=== PATIENT | male | born 1965 | race Caucasian/White ===

== ENCOUNTER 2020-05-26 15:52 | Inpatient (IN) ==
[2020-05-26 17:58] LABS: ABS Basophils 0.1 10^3/ul (0-0.2); ABS Eosinophils 0.2 10^3/ul (0-0.6); ABS Lymphocytes 1.9 10^3/ul (1.0-4.8); ABS Monocytes 0.5 10^3/ul (0-0.8); Eosinophil % 3.3 %; Hematocrit 40 % (42-52); Lymphocyte % 28.3 %; Mean Corpuscular HGB Conc 35 g/dL (31-36); Mean Corpuscular Hemoglobin 32 pg (27-31); Mean Corpuscular Volume 90 fL (80-94); Mean Platelet Volume 7.4 fL (7.4-10.4); Platelet Count 197 10^3/uL (150-450); Red Blood Count 4.42 10^6 /uL (4.18-5.48); Red Cell Distribution Width 15 % (10-15); White Blood Count 6.8 10^3/uL (3.5-10.8)
[2020-05-26] MEDS ORDERED: Vancomycin 1,000 MG in NS 0.9% 250 ml 250 ML IV ONE (18:13)
[2020-05-26] MEDS ORDERED: cefTRIAXone VIAL 1,000 MG VIAL IM ONE (18:13)
[2020-05-26] MEDS ORDERED: NS 0.9% 1000 ml BAG 1,000 ML IV ONE (18:13)
[2020-05-26 18:34] LABS: BUN/Creatinine Ratio 16.1 (8-20); C Reactive Protein 14.81 mg/L (<8.01); Calcium 9.2 mg/dL (8.6-10.3); EGFR African American 102.1 (>60); EGFR Non-African American 84.4 (>60); Potassium 3.9 mmol/L (3.5-5.0)
[2020-05-26] MEDS ORDERED: cefTRIAXone 2 GM ADDV.VIAL 2 GM in NS 0.9% 100 ml BAG 100 ML IVPB ONE (18:35)
[2020-05-26] MEDS ORDERED: cefTRIAXone 1 gm/50 mL NS BAG 1 GM/50 ML BAG IV ONE (18:35)
[2020-05-26 19:50] LABS: Erythrocyte Sed Rate 39 mm/Hr (0-19)
[2020-05-27] MEDS ORDERED: Vancomycin 1,000 MG in NS 0.9% 250 ml 250 ML IVPB ONE (00:43)
[2020-05-27] MEDS ORDERED: Vancomycin 1,500 MG in NS 0.9% 250 ml 250 ML IVPB ONE (00:52)
[2020-05-27] MEDS ORDERED: Vancomycin per Pharmacy 1 EA NOTE FOLLOW UP SCH (01:00)
[2020-05-27 06:24] LABS: ABS Eosinophils 0.2 10^3/ul (0-0.6); ABS Lymphocytes 2.2 10^3/ul (1.0-4.8); ABS Monocytes 0.4 10^3/ul (0-0.8); Eosinophil % 3.9 %; Hematocrit 38 % (42-52); Lymphocyte % 41.1 %; Mean Corpuscular HGB Conc 34 g/dL (31-36); Mean Corpuscular Hemoglobin 31 pg (27-31); Mean Corpuscular Volume 91 fL (80-94); Mean Platelet Volume 7.5 fL (7.4-10.4); Nucleated Red Blood Cells % 0.2; Platelet Count 162 10^3/uL (150-450); Red Blood Count 4.21 10^6 /uL (4.18-5.48); Red Cell Distribution Width 15 % (10-15); White Blood Count 5.4 10^3/uL (3.5-10.8)
[2020-05-27] MEDS: Nicotine PATCH 21 MG/24 HR PATCH TRANSDERM SCH (09:12)
[2020-05-27] MEDS: Vancomycin(*) 1,250 MG IV IVPB SCH ×2 (09:13→17:36)
[2020-05-27] MEDS: cefTRIAXone 2 GM ADDV.VIAL 2 GM in NS 0.9% 100 ml BAG 100 ML IV SCH (18:01)
[2020-05-27] MEDS: Enoxaparin 40 MG/0.4 ML SYR(*) SUBCUT SCH (18:02)
[2020-05-28] MEDS: Vancomycin(*) 1,250 MG IV IVPB SCH ×2 (01:35→11:40)
[2020-05-28] MEDS ORDERED: Vancomycin Trough Check NOTE FOLLOW UP ONE (09:00)
[2020-05-28 09:39] LABS: BUN/Creatinine Ratio 14.3 (8-20); C Reactive Protein 6.7 mg/L (<8.01); Calcium 8.9 mg/dL (8.6-10.3); EGFR African American 126.9 (>60); EGFR Non-African American 104.9 (>60)
[2020-05-28] MEDS: Nicotine PATCH 21 MG/24 HR PATCH TRANSDERM SCH (09:56)
[2020-05-28] MEDS ORDERED: Albuterol HFA INHALER 8 gm MDI INH PRN (09:59)
[2020-05-28] MEDS: Enoxaparin 40 MG/0.4 ML SYR(*) SUBCUT SCH (11:36)
[2020-05-28] MEDS: Vancomycin 1,000 MG in NS 0.9% 250 ml 250 ML IV SCH ×2 (11:47→20:11)
[2020-05-28] MEDS: SPIRIVA Respimat (tiotropium) 2.5 mcg/inh Inhaler INH SCH (13:06)
[2020-05-28] MEDS: cefTRIAXone 2 GM ADDV.VIAL 2 GM in NS 0.9% 100 ml BAG 100 ML IV SCH (18:28)
[2020-05-29] MEDS: Vancomycin 1,000 MG in NS 0.9% 250 ml 250 ML IV SCH ×3 (04:23→19:47)
[2020-05-29] MEDS: Nicotine PATCH 21 MG/24 HR PATCH TRANSDERM SCH (08:03)
[2020-05-29] MEDS: SPIRIVA Respimat (tiotropium) 2.5 mcg/inh Inhaler INH SCH (09:22)
[2020-05-29] MEDS ORDERED: Vancomycin Trough Check NOTE FOLLOW UP ONE (11:30)
[2020-05-29 12:32] LABS: EGFR African American 130.8 (>60); EGFR Non-African American 108.1 (>60)
[2020-05-29 12:51] LABS: Vancomycin Trough 15.3 mcg/mL
[2020-05-29] MEDS: cefTRIAXone 2 GM ADDV.VIAL 2 GM in NS 0.9% 100 ml BAG 100 ML IV SCH (17:33)
[2020-05-29] MEDS ORDERED: Enoxaparin 40 MG/0.4 ML SYR(*) SUBCUT SCH (21:00)
[2020-05-30] MEDS: Vancomycin 1,000 MG in NS 0.9% 250 ml 250 ML IV SCH ×2 (03:45→11:54)
[2020-05-30] MEDS: Nicotine PATCH 21 MG/24 HR PATCH TRANSDERM SCH (08:56)
[2020-05-30] MEDS: SPIRIVA Respimat (tiotropium) 2.5 mcg/inh Inhaler INH SCH (10:30)
[2020-05-30 14:03] VITALS: BP 119/65
== END 2020-05-30 14:30 | disposition home or self-care (01) | DRG 539 ==
LOC: ED 15:52 → MED 05-27 00:03
PROVIDERS: ADMIT Internal Medicine; ATTEND Internal Medicine